=== PATIENT | female | born 1935 | race Caucasian/White ===

== ENCOUNTER 2019-08-30 16:11 | Emergency (ER) | payer OTHER ==
[~2019-08-30] VITALS: Ht 149.9 cm; Wt 55.3 kg
[2019-08-30] MEDS ORDERED: SYNTHROID50 MCG (16:54)
[2019-08-30] MEDS ORDERED: SINGULAIR 10MG10 MG (16:55)
[2019-08-30] MEDS ORDERED: ADVAIR 100-501 EACH (16:55)
[2019-08-30] MEDS ORDERED: DULOXETINE HCL40 MG (16:55)
== END 2019-08-30 19:51 | disposition home or self-care (01) ==
LOC: ER 16:11
DX: R00.2 Palpitations (principal); F06.4 Anxiety disorder due to known physiological condition